=== PATIENT | female | born 1965 | race Two or more races ===

== ENCOUNTER 2021-04-01 11:27 | Outpatient (REF) | payer OTHER, SELFPAY ==
--- NOTE | ~2021-04-01 | MM_ITS ---
EXAMINATION: MM SCREENING DIGITAL BREAST TOMOSYNTHESIS, BILATERAL CLINICAL INFORMATION: Screening. Asymptomatic. Prior [id number] mammography from the your currently unavailable. The lifetime risk of breast cancer based on the Tyrer-Cuzick Model is 8%. COMPARISON: None. TECHNIQUE: Digital breast tomosynthesis is performed in both the craniocaudal and mediolateral oblique views along with computer-aided detection (CAD). Synthesized 2D images are generated from the tomosynthesis. Additional left MLO view is provided. FINDINGS: There are scattered areas of fibroglandular density (ACR BI-RADS breast composition Category b). Breast parenchyma borders on predominantly fatty. Background stromal markings are unremarkable. There is benign-appearing fibroglandular asymmetry posterior upper outer left breast. There is no significant mass or architectural abnormality. Scattered benign round and rim calcifications are present. The axilla and skin contours are unremarkable. Radiology department will attempt to retrieve prior [id number] mammography to allow for comparison in an addendum report. MM/MM tomosynthesis screening BI IMPRESSION: No mammographic evidence of malignancy. ASSESSMENT: BI-RADS 2: Benign RECOMMENDATION: 1. Routine annual mammography screening. 2. Radiology department staff will attempt to retrieve prior [id number] mammography to allow for comparison in an addendum report. This patient's information was entered into a reminder system with a target due date for their next mammogram.
== END 2021-04-01 11:28 | disposition home or self-care (01) ==
LOC: HO.MAMMO 11:27
PROVIDERS: PCP Nurse Practitioner Family; Visit Provider Nurse Practitioner Family
DX: Z12.31 Encounter for screening mammogram for malignant neoplasm of breast (principal)
CPT/HCPCS: 77063; 77067

== ENCOUNTER → 2021-05-22 10:09 | Outpatient (BNVA) | payer OTHER, SELFPAY | PROVIDERS: PCP Nurse Practitioner Family; Visit Provider Nurse Practitioner Family | DX: M54.42 Lumbago with sciatica, left side (principal); M79.7 Fibromyalgia; M54.17 Radiculopathy, lumbosacral region; M47.816 Spondylosis without myelopathy or radiculopathy, lumbar region; M47.22 Other spondylosis with radiculopathy, cervical region; M53.3 Sacrococcygeal disorders, not elsewhere classified | CPT/HCPCS: 99202 ==

== ENCOUNTER 2021-06-10 08:02 | Outpatient (REF) | payer OTHER, SELFPAY ==
[2021-06-10 08:25] LABS: MANUAL DIFF FLAG NO
[2021-06-10 08:38] LABS: Basophils Absolute Auto 0.1 X10*3/uL (0.0-0.2); Basophils Percent Auto 0.5 % (0-2); Eosinophils Absolute Auto 0.4 X10*3/uL (0.0-0.4); Eosinophils Percent Auto 3.7 % (0-4); Hematocrit 38.1 % (37.0-47.0); Imm Gran Abs Auto 0.03 X10*3/uL (0.00-0.03); Imm Gran Pct Auto 0.3 % (0.0-0.4); Lymphocytes Absolute Auto 1.9 X10*3/uL (1.2-4.9); Lymphocytes Percent Auto 18.8 % (20-40); Mean Corpuscular HGB Conc 31.5 g/dl (31.0-35.0); Mean Corpuscular Hemoglobin 26.2 pg (27.0-33.0); Mean Corpuscular Volume 83.2 fL (80.0-98.0); Mean Platelet Volume 11.3 fL (9.4-12.3); Monocytes Absolute Auto 0.7 X10*3/uL (0.1-1.2); Monocytes Percent Auto 6.6 % (2-11); Neutrophils Absolute Auto 6.9 x10*3/uL (2.0-8.3); Neutrophils Percent Auto 70.1 % (45-73); Platelet Count 239 X10*3/uL (160-400); Red Blood Count 4.58 X10*6/uL (4.20-5.50); Red Cell Distribution Width 13.5 % (11.0-16.0); White Blood Count 9.9 X10*3/uL (4.8-10.8)
[2021-06-10 09:08] LABS: Alanine Aminotransferase 15 U/L (0-31); Albumin Level 4.3 g/dL (3.5-5.0); Alkaline Phosphatase 109 U/L (39-117); Anion Gap 12 (12-20); Aspartate Amino Transferase 12 U/L (5-31); Bilirubin Total 0.2 mg/dL (0.0-1.0); Blood Urea Nitrogen 18 mg/dL (9-16); Calcium 9.1 mg/dL (8.4-10.2); Carbon Dioxide 28 mmol/L (22-29); Chloride 101 mmol/L (96-108); Cholesterol 195 mg/dL; Estimated Glomerular Filt Rate > 60; Glucose Fasting 156 mg/dL (60-99); HDL Cholesterol 59 mg/dL; LDL Cholesterol Calculated 107 mg/dl; Sodium 137 mmol/L (135-145); Total Protein 6.8 g/dL (6.5-8.0); Triglycerides 147 mg/dL
[2021-06-10 09:20] LABS: TSH reflex Free T4 1.49 uIU/mL (0.32-4.0)
[2021-06-10 09:33] LABS: Estimated Average Glucose 169 mg/dL; Hemoglobin A1c % 7.5 %
[2021-06-10 10:07] LABS: Creatinine Urine 82.62 mg/dL; Microalbum/Creatinine Ratio Ur 9.6 ug/mg cr
== END 2021-06-10 08:03 | disposition home or self-care (01) ==
LOC: HO.LAB 08:02
PROVIDERS: PCP Nurse Practitioner Family; Visit Provider Nurse Practitioner Family
DX: I10 Essential (primary) hypertension (principal); J45.40 Moderate persistent asthma, uncomplicated; E78.00 Pure hypercholesterolemia, unspecified; E11.9 Type 2 diabetes mellitus without complications; D50.9 Iron deficiency anemia, unspecified; M79.7 Fibromyalgia
CPT/HCPCS: 36415; 80053; 80061; 82043; 83036; 84443; 85025

== ENCOUNTER 2021-06-11 15:40 | Outpatient (REF) | payer OTHER, SELFPAY ==
--- NOTE | ~2021-06-11 | MR_ITS ---
MR LUMBAR SPINE WITHOUT IV CONTRAST CLINICAL INFORMATION: Sacrococcygeal disorders, not elsewhere classified. COMPARISON: None TECHNIQUE: MRI of the lumbar spine was obtained using routine sequences without contrast. FINDINGS: Transitional anatomy. Articulating transverse processes are assumed at L1 and S1 is lumbarized, sharing a rudimentary disc with S2. 5 lumbar type vertebral bodies. Please correlate with plain films prior to any percutaneous or surgical intervention. Vertebral body heights are maintained. There is disc desiccation at the L3-L4, L4-L5, and L5-S1 levels. There is no bone marrow edema. There are no acute fractures. Conus terminates at the L1 level. There is partially imaged bulky retroperitoneal lymphadenopathy. L1-L2: Small annular disc bulge. No central canal stenosis and no foraminal stenosis. L2-L3: Slight annular disc bulge and mild bilateral facet arthropathy. No central canal stenosis and no foraminal stenosis. L3-L4: Diffuse annular disc bulge and moderate bilateral facet arthropathy and ligamentum flavum thickening. No central canal stenosis. Mild foraminal encroachment bilaterally. L4-L5: Diffuse annular disc bulge and moderate bilateral facet arthropathy and ligamentum flavum thickening. No central canal stenosis. Mild to moderate bilateral foraminal encroachment without exiting nerve root compression. L5-S1: Diffuse annular disc bulge and moderate bilateral hypertrophic facet arthropathy. No central canal stenosis. Moderate bilateral foraminal stenosis with mild mass effect on the exiting L5 nerve roots bilaterally. MR/MR lumbar spine wo con IMPRESSION: - There is partially imaged bulky retroperitoneal lymphadenopathy. Contrast-enhanced CT of the chest, abdomen, and pelvis and a full malignancy workup are advised. - Transitional anatomy. Articulating transverse processes are assumed at L1 and S1 is lumbarized, sharing a rudimentary disc with S2. 5 lumbar type vertebral bodies. Please correlate with plain films prior to any percutaneous or surgical intervention. - Multilevel lumbar spondylosis, greatest at L5-S1 where spondylitic changes result in moderate bilateral foraminal stenosis with mild mass effect on the exiting L5 nerve roots bilaterally. Findings and recommendations discussed with Keely Soliman NP at 8:54 AM on 06/12/2021.
== END 2021-06-11 15:41 | disposition home or self-care (01) ==
LOC: HO.MRI 15:40
PROVIDERS: Visit Provider Nurse Practitioner Family
DX: M53.3 Sacrococcygeal disorders, not elsewhere classified (principal); M54.17 Radiculopathy, lumbosacral region; M47.816 Spondylosis without myelopathy or radiculopathy, lumbar region; M54.42 Lumbago with sciatica, left side; G89.29 Other chronic pain
CPT/HCPCS: 72148

== ENCOUNTER 2021-06-15 09:31 | Outpatient (REF) | payer OTHER, SELFPAY ==
[2021-06-18 08:11] LABS: CA 125 New Method 4 U/mL (<35); CA-125 4 U/mL (<35); Carbohydrate Antigen 19-9 7 U/mL (<34)
[2021-06-19 08:57] LABS: Cancer Antigen 15-3 7 U/mL (<32)
== END 2021-06-15 09:32 | disposition home or self-care (01) ==
LOC: HO.LAB 09:31
PROVIDERS: PCP Nurse Practitioner Family; Visit Provider Nurse Practitioner Family
DX: R59.0 Localized enlarged lymph nodes (principal)
CPT/HCPCS: 36415; 82378; 86300; 86301; 86304

== ENCOUNTER → 2021-06-29 11:10 | Outpatient (BNVA) | payer OTHER, SELFPAY | PROVIDERS: PCP Nurse Practitioner Family; Visit Provider Nurse Practitioner Family | DX: Z13.89 Encounter for screening for other disorder (principal) ==

== ENCOUNTER 2021-07-03 11:31 | Outpatient (REF) | payer OTHER, SELFPAY ==
--- NOTE | ~2021-07-03 | XR_ITS ---
EXAMINATION: XR lumbar spine 2-3V CLINICAL INFORMATION: Reason for Exam M54.17 - Radiculopathy, lumbosacral region COMPARISON: None TECHNIQUE: 3 views of the lumbar spine XR/XR lumbar spine 2-3V FINDINGS/IMPRESSION: * Vertebral body heights and alignment are maintained without evidence of acute fracture. * Disc space heights are maintained without significant degenerative disc disease. * Transitional lumbosacral anatomy is incidentally noted with 4 nonrib-bearing lumbar-type vertebral bodies with sacralization of L5 and rudimentary L5-S1 disc space. If intervention is being considered recommend total spine radiographs to ensure accurate numbering.
== END 2021-07-03 11:32 | disposition home or self-care (01) ==
LOC: HO.XRAY 11:31
PROVIDERS: PCP Nurse Practitioner Family; Visit Provider Nurse Practitioner Family
DX: M54.17 Radiculopathy, lumbosacral region (principal); M47.816 Spondylosis without myelopathy or radiculopathy, lumbar region
CPT/HCPCS: 72100

== ENCOUNTER 2021-07-17 11:49 | Outpatient (REF) | payer OTHER, SELFPAY ==
[2021-07-17 13:48] LABS: Blood Urea Nitrogen 8 mg/dL (9-16); Estimated Glomerular Filt Rate > 60
== END 2021-07-17 11:50 | disposition home or self-care (01) ==
LOC: HO.LAB 11:49
PROVIDERS: PCP Nurse Practitioner Family; Visit Provider Nurse Practitioner Family
DX: Z01.818 Encounter for other preprocedural examination (principal)
CPT/HCPCS: 82565; 84520

== ENCOUNTER 2021-07-21 12:46 | Outpatient (REF) | payer OTHER, SELFPAY ==
--- NOTE | ~2021-07-21 | CT_ITS ---
EXAMINATION: CT CHEST, ABDOMEN AND PELVIS WITH CONTRAST CLINICAL INFORMATION: Reason for Exam R59.0 - Localized enlarged lymph nodes COMPARISON: MRI lumbar spine 06/11/2021 TECHNIQUE: Multidetector volumetric imaging was performed from the thoracic inlet through the pubic symphysis following administration of 85 mL of Omnipaque 300. Sagittal and coronal reformatted images were obtained on the technologist's workstation. This CT examination was performed using dose optimization techniques as appropriate, variously including the following: *Automated exposure control *Adjustment of mA and/or kV according to patient size (this includes techniques or standardized protocols for targeted exams where dose is matched to indication/reason for exam; i.e. extremities or head) *Use of iterative reconstruction technique DLP: 203 mGy-cm FINDINGS: CHEST: Lung: The lungs are clear without focal opacity or nodule. Mediastinum: The mediastinum is normal. The central vascular structures are unremarkable. No hilar or mediastinal lymphadenopathy. Pericardium/Pleura: No significant effusion. No pleural mass or thickening. Chest Wall/Axilla: Unremarkable ABDOMEN/PELVIS: Peritoneal Space: No significant free air or free fluid identified. Liver, Gallbladder, Biliary Tree: The liver is normal in size, shape, and attenuation. No focal hepatic lesion or biliary ductal dilatation is present. The gallbladder is unremarkable with no evidence of radiopaque gallstones, gallbladder wall thickening, or obvious pericholecystic inflammatory changes. Pancreas: Unremarkable Spleen: Unremarkable Adrenal Glands: There is a large fat density mass arising from the lateral limb of the left adrenal gland measuring 4.1 x 4.6 x 4.3 cm consistent with an adrenal myelolipoma lipoma. The right adrenal gland appears normal. Kidneys and Ureters: The kidneys are normal in size, shape, and attenuation. There is a punctate 2 mm nonobstructing calculus present in the right lower pole. No hydronephrosis, hydroureter, or other calculi seen. No perinephric stranding. Bladder: Unremarkable Gastrointestinal Tract: The small and large bowel are unremarkable. The appendix is unremarkable. Abdominal Wall: No significant hernia is appreciated. Lymph Nodes: Large left para-aortic lymph nodes are seen. The largest node is in the left para-aortic region and measures 2.4 x 2.5 x 6.5 cm (3:52). If desired, this would be amenable to CT-guided biopsy. Smaller left external iliac lymph nodes are present with the largest on the right measuring 2.0 x 1.7 x 2.9 cm (3:77) Vascular: The aorta appears normal.. The IVC appears unremarkable. PELVIC VISCERA: Unremarkable OSSEUS STRUCTURES: Mild degenerative changes are noted in the thoracic spine. No bony destructive lesions are seen. CT/CT abdomen pelvis w con IMPRESSION: Pathologically enlarged left para-aortic lymph nodes. Please see discussion above. Fleischner guidelines were followed.
[2021-07-21] MEDS: iohexoL 300 MG/ML 100 ML INFUS..BTL IV (15:35)
[2021-07-21] MEDS: Barium Sulfate Oral (Berry) 450 ML ORAL.SUSP 900 ML PO (15:40)
== END 2021-07-21 12:47 | disposition home or self-care (01) ==
LOC: HO.CT 12:46
PROVIDERS: Visit Provider Nurse Practitioner Family
DX: R59.0 Localized enlarged lymph nodes (principal)
CPT/HCPCS: 71260; 74177; Q9967

== ENCOUNTER → 2021-07-27 08:54 | Outpatient (BNVA) | payer OTHER, SELFPAY | PROVIDERS: PCP Nurse Practitioner Family; Referring Provider Nurse Practitioner Family; Visit Provider Surgery | DX: R59.0 Localized enlarged lymph nodes (principal) | CPT/HCPCS: 99202 ==

== ENCOUNTER 2021-08-06 08:33 | Outpatient (REF) | payer OTHER, SELFPAY ==
--- NOTE | 2021-08-06 08:36 | EMG_ITS ---
Left median and ulnar motor and sensory studies were performed. Left radial sensory studies were performed and paraspinal muscles were tested with a needle. IMPRESSION: Mild left median neuropathy across carpal tunnel. Otherwise, study was unremarkable. MD SUKHDEV Sanders/RACHEL / [phone]
== END 2021-08-06 08:34 | disposition home or self-care (01) ==
LOC: HO.NEURO 08:33
PROVIDERS: Visit Provider Nurse Practitioner Family
DX: M47.22 Other spondylosis with radiculopathy, cervical region (principal)
CPT/HCPCS: 95886; 95909

== ENCOUNTER 2021-08-21 12:21 | Day surgery (SDC) | payer OTHER, SELFPAY ==
[2021-08-21] VITALS (7 sets, daily range): BP systolic 146–160; BP diastolic 75–95; PULSE 60–70; RESP 11–19; TEMP 36.4–36.8; O2SAT 96–98; BMI 33.0
--- NOTE | ~2021-08-21 | CT_ITS ---
PROCEDURE: CT GUIDED BIOPSY, ABDOMINAL MASS CLINICAL INFORMATION: Enlarged left para-aortic lymph nodes. COMPARISON: None TECHNIQUE: Following explaining CT fluoroscopy-guided core biopsy procedure of left para-aortic lymph node, benefits and risks were explained. Consent was obtained for conscious sedation as well. Patient was placed semi-prone on CT table and preliminary CT imaging was obtained. An optimal site was selected along the left paraspinal region and marked. The marked site was cleaned and draped in usual sterile manner. 1% lidocaine was injected at puncture site. A 15 cm long 22-gauge guide needle was advanced from the skin just to the posterior margin of the large lymph node. Coaxially a 22-gauge 20 cm long needle was advanced and a 3 pass fine-needle biopsy was performed. The coaxial needle was withdrawn and complete hemostasis achieved. Sterile dressing applied postprocedure. Patient tolerated procedure extremely well. There were no complications. Conscious sedation was administered and patient monitored by IR nursing and radiologist during the exam. This CT examination was performed using dose optimization techniques as appropriate, variously including the following: *Automated exposure control *Adjustment of mA and/or kV according to patient size (this includes techniques or standardized protocols for targeted exams where dose is matched to indication/reason for exam; i.e. extremities or head) *Use of iterative reconstruction technique DLP: 364 mGy-cm FINDINGS: On preliminary imaging there are several left para-aortic lymph nodes visualized. CT fluoroscopy-guided left para-aortic lymph node biopsy was performed. Preliminary results from pathologist revealed lymphocytes. Samples were also sent for lymphoma evaluation. CT/CT biopsy abdomen percutaneous IMPRESSION: Successful CT fluoroscopy-guided left para-aortic lymph node biopsy performed without immediate complications.
[2021-08-21 12:38] LABS: MANUAL DIFF FLAG NO
[2021-08-21 12:40] LABS: Basophils Percent Auto 0.5 % (0-2); Eosinophils Absolute Auto 0.1 X10*3/uL (0.0-0.4); Eosinophils Percent Auto 1.6 % (0-4); Hematocrit 37.5 % (37.0-47.0); Hemoglobin 11.6 g/dl (12.0-16.0); Imm Gran Abs Auto 0.02 X10*3/uL (0.00-0.03); Imm Gran Pct Auto 0.3 % (0.0-0.4); Lymphocytes Absolute Auto 1.5 X10*3/uL (1.2-4.9); Lymphocytes Percent Auto 19.9 % (20-40); Mean Corpuscular HGB Conc 30.9 g/dl (31.0-35.0); Mean Corpuscular Hemoglobin 25.7 pg (27.0-33.0); Mean Corpuscular Volume 83.1 fL (80.0-98.0); Mean Platelet Volume 10.9 fL (9.4-12.3); Monocytes Absolute Auto 0.4 X10*3/uL (0.1-1.2); Monocytes Percent Auto 5.8 % (2-11); Neutrophils Absolute Auto 5.3 x10*3/uL (2.0-8.3); Neutrophils Percent Auto 71.9 % (45-73); Platelet Count 221 X10*3/uL (160-400); Red Blood Count 4.51 X10*6/uL (4.20-5.50); Red Cell Distribution Width 13.8 % (11.0-16.0); White Blood Count 7.4 X10*3/uL (4.8-10.8)
[2021-08-21 12:45] LABS: Prothrombin Time 11.4 SEC (10.0-13.1)
[2021-08-21 12:58] LABS: Glucose, Whole Blood 117 mg/dL (60-115)
[2021-08-21] MEDS: Acetaminophen 325 MG TABLET 650 MG PO (15:30)
== END 2021-08-21 16:43 | disposition home or self-care (01) ==
PROVIDERS: Radiology Diagnostic Radiology; PCP Nurse Practitioner Family; Visit Provider Radiology Diagnostic Radiology
DX: R59.0 Localized enlarged lymph nodes (principal); G89.29 Other chronic pain; M54.9 Dorsalgia, unspecified; Z79.84 Long term (current) use of oral hypoglycemic drugs; Z79.899 Other long term (current) drug therapy; Z88.0 Allergy status to penicillin; Z90.49 Acquired absence of other specified parts of digestive tract
CPT/HCPCS: 36415; 49180; 77012; 82947; 85025; 85610; 85730; 88184; 88185; 88305; 88333; 88341; 88342; 88360; 99152; J2250; J3010

== ENCOUNTER → 2021-08-27 11:53 | Outpatient (BNVA) | payer OTHER, SELFPAY | PROVIDERS: PCP Nurse Practitioner Family; Visit Provider Surgery | DX: C85.12 Unspecified B-cell lymphoma, intrathoracic lymph nodes (principal); Z98.890 Other specified postprocedural states | CPT/HCPCS: 99212 ==

== ENCOUNTER 2021-09-22 13:15 | Outpatient (REF) | payer OTHER, SELFPAY ==
--- NOTE | ~2021-09-22 | PE_ITS ---
Non-Hodgkin's B-cell lymphoma EXAMINATION: Fluorine-18 FDG PET/CT Scan CLINICAL INDICATION: Initial treatment management. Non-Hodgkin's B-cell lymphoma. PROCEDURE: 58 minutes following the intravenous administration of 16.9 mCi of fluorine 18 FDG, images from the base of the skull to the mid thighs were obtained using a combined PET/CT scanner with CT scan based attenuation correction. No oral contrast was administered. No intravenous contrast was administered. Transverse, coronal, sagittal, and volume reconstruction projections were obtained. The patient's blood glucose as determined by a finger stick, was 113 mg/dl immediately prior to injection. Total CT exam dose-length product 852.63 mGy-cm * These CT images were obtained using dose optimization techniques as appropriate, variously including the following: Automated exposure control * Adjustment of mA and/or kV according to patient size (this includes techniques or standardized protocols for targeted exams where dose is matched to indication/reason for exam; i.e. extremities or head) * Use of iterative reconstruction technique COMPARISON: No previous PET/CT scan is available for comparison. The diagnostic CT scan of the chest, abdomen, and pelvis, dated 07/21/2021, is available for comparison. CT-guided biopsy of a left retroperitoneal lymph node dated 08/21/2021 is also available for comparison. FINDINGS: (Slice numbers described in this report are numbered superiorly to inferiorly with slice #1 in the head) NECK AND VISUALIZED HEAD: No foci of abnormal FDG activity are noted. The distribution of FDG activity is physiological. There is no cervical lymphadenopathy. THORAX: There are no additional foci of abnormal FDG activity. No pulmonary nodules are visualized. There is no pleural or pericardial fluid or pneumothorax. There is no mediastinal, supraclavicular, or axillary lymphadenopathy. ABDOMEN AND PELVIS: There is mildly increased FDG activity in an enlarged left para-aortic recently biopsied retroperitoneal lymph node, SUVmax 4.2, slice 155/267. This measures 2.2 x 2.1 cm in largest transverse dimensions and does not appear significantly changed from the 07/21/2021 CT scan. Multiple additional adjacent left-sided retroperitoneal lymph nodes also show mild FDG activity. There also are a few normal-sized mildly FDG avid left inguinal lymph nodes, the most prominent showing SUVmax 2.8, slice 216/267 and measuring 2.2 x 1.1 cm in largest transverse dimension. No definite additional foci of abnormal FDG activity are noted in the abdomen or pelvis. Diffuse FDG activity throughout the gastrointestinal tract of varying intensities is probably physiological as well as related to metformin use. The liver, gallbladder, spleen, and pancreas are unremarkable. A punctate right lower pole nonobstructing calcified renal calculus is unchanged from 07/21/2021. The kidneys are otherwise unremarkable. The right adrenal gland is unremarkable. There is a 4.0 x 3.2 cm fat-density lesion in the left adrenal gland with no associated abnormal FDG activity unchanged from 07/21/2021 and likely an adrenal myelolipoma. The pelvic organs are unremarkable. MUSCULOSKELETAL: No foci of abnormal activity are present in the osseous structures. There are degenerative changes in the spine, but no suspicious sclerotic or lytic lesions are visualized. VASCULAR: Vascular calcifications including coronary are noted. PET/PET CT fusion skull to thigh IMPRESSION: 1. Multiple FDG avid left-sided retroperitoneal lymph nodes are noted as described above, consistent with the known diagnosis of non-Hodgkin's B-cell lymphoma. 2. There are a few normal-sized mildly FDG avid left inguinal lymph nodes which are nonspecific, but suspicious for additional malignant foci. 3. No additional abnormalities suspicious for other metastatic or malignant lesions are noted. 4. Nonobstructing punctate right nephrolithiasis. 5. Vascular calcifications including coronary.
== END 2021-09-22 13:16 | disposition home or self-care (01) ==
LOC: HO.PET 13:15
PROVIDERS: Visit Provider Internal Medicine
DX: Z13.89 Encounter for screening for other disorder (principal)

== ENCOUNTER → 2021-12-22 12:23 | Outpatient (BNVA) | payer OTHER, SELFPAY | PROVIDERS: PCP Physician Assistant; Referring Provider Physician Assistant; Visit Provider Internal Medicine Cardiovascular Disease | DX: R06.09 Other forms of dyspnea (principal); I10 Essential (primary) hypertension | CPT/HCPCS: 93005; 99202 ==

== ENCOUNTER → 2022-01-06 12:33 | Outpatient (REF) | payer OTHER, SELFPAY ==
--- NOTE | 2022-01-06 12:36 | CA_ITS ---
Transthoracic Echocardiogram Patient (Last, First, Middle): Tiffany Johnson, Gender: Female Date of : 1965 Age: 56 Procedure Date: 01/06/2022 Procedure Type: Transthoracic Echocardiogram Location: OP Height: 157.48 cm Weight: 81.65 kg BSA: 1.83 m2 Heart Rate: 66 bpm BP: 130 / 80 mmHg Associate Software Development Engineer: ARIA Referring MD: Jermaine Alvarado MD Symptoms: R06.09 - Other forms of dyspnea Study Quality: Fair ECG Rhythm: Sinus Conclusions: - The left ventricular systolic function is normal. The visually estimated ejection fraction is between 60-65%. - The left atrium is moderately dilated. - No obvious valvular pathology seen on this study. Findings Left Ventricle Normal left ventricular cavity size. There is mildly increased left ventricular wall thickness. The left ventricular systolic function is normal. The visually estimated ejection fraction is between 60-65%. There is no evidence of regional wall motion abnormalities. E/E prime ratio is between 8 and 15 consistent with indeterminate filling pressures. Evidence suggests grade I (mild) diastolic dysfunction. Right Ventricle Normal right ventricular cavity size and systolic function. Atria The left atrium is moderately dilated. The right atrium is normal in size. Aortic Valve There is a normal trileaflet aortic valve. There is no aortic valve stenosis. There is no aortic valve regurgitation. Mitral Valve There is mild mitral annular calcification. There is no mitral valve regurgitation. There is no mitral valve stenosis. Pulmonic Valve The pulmonic valve is likely normal. Tricuspid Valve Normal tricuspid valve structure. There is trace tricuspid valve regurgitation. There is no evidence of pulmonary hypertension. Great Vessels The asc aorta is normal in size. Small plaque is seen in the sino tubular ridge. Venous The inferior vena cava is normal in size and collapses greater than 50% with inspiration. Pericardium/Pleural There is no evidence of pericardial effusion. Prior Study Comparison No prior study available for comparison. Recommendations, Care & Conclusions No obvious valvular pathology seen on this study. Measurements 2D Linear Measurements IVSd: 1.29 0.6-0.9/0.6-1.0 cm LVIDd: 4.53 3.9-5.3/4.2-5.9 cm LVIDd Index: 2.48 2.4-3.2/2.2-3.1 cm/m2 LVIDs: 2.86 2.0-3.6 cm LVPWd: 1.27 0.7-1.1 cm LA Diam: 3.90 2.7-3.8/3.0-4.0 cm LAIDs Index: 2.13 1.5-2.3 cm/m2 LV Mass: 273.98 67-162/88-224 g LV Mass Index: 149.72 43-95/49-115 g/m2 LVOT Diam: 2.10 3.0+(-)1.3 cm 2D Systolic Function EF 4C: 51.50 >55% EF 2C: 63.00 >55% EF BiP: 57.30 >55% Mitral Valve MV Pk E: 0.94 MV PK A: 0.96 MV Decel Time: 233.00 E/A: 1.00 E'Lateral: 7.72 E'Medial: 4.90 E/E' Med: 19.20 E/E' Lat: 12.20 PHT: 68.00 MVA PHT: 3.24 Decel [place]: 4.05 Aortic Valve AoV Pk Ryne: 1.59 AoV Mn Ryne: 1.07 AoV VTI: 0.35 AoV Pk Grad: 10.00 Aov Mn Grad: 5.00 CHLOE Cont.VTI: 2.27 LVOT LVOT Pk Ryne: 1.06 LVOT Mn Ryne: 0.73 LVOT VTI: 0.23 LVOT Pk Grad: 4.00 LVOT Mn Grad: 2.00 LVOT Diam: 2.10 LVOT Area: 3.46 Diastolic Function MV Pk E: 0.94 MV Pk A: 0.96 E/A: 1.00 E'Medial: 4.90 E/E' Med: 19.20 E' Laterial: 7.72 E/E' Lat: 12.20 Right Ventricle TAPSE (mm): 19.40 TVS' Ryne: 11.10 Tricuspid Valve TR Pk Ryne: 1.94 TR Pk Grad: 15.00 RA Press: 3.00 RVSP: 18.00 Great Vessels Aorta Sinus of Valsalva: 3.60 2.0-3.5 cm Ao Asc: 3.50 2.1-3.4 cm Pulmonary Valve PV Pk Ryne: 0.95 Peak PV Grad: 4.00 Updated in Other Vendor System with Status of Final Steve Mcfarlane MD electronically signed on 01/09/2022 1:00:52 PM with status of Final
== END ==
LOC: HO.CARD 12:33
PROVIDERS: PCP Physician Assistant; Visit Provider Internal Medicine Cardiovascular Disease
DX: R06.09 Other forms of dyspnea (principal); I10 Essential (primary) hypertension
CPT/HCPCS: 93306

== ENCOUNTER 2022-01-11 12:38 | Outpatient (REF) | payer OTHER, SELFPAY ==
[2022-01-11 12:55] LABS: MANUAL DIFF FLAG NO
[2022-01-11 12:56] LABS: Basophils Percent Auto 0.6 % (0-2); Eosinophils Absolute Auto 0.2 X10*3/uL (0.0-0.4); Eosinophils Percent Auto 2.2 % (0-4); Hematocrit 38.9 % (37.0-47.0); Imm Gran Abs Auto 0.03 X10*3/uL (0.00-0.03); Imm Gran Pct Auto 0.4 % (0.0-0.4); Lymphocytes Absolute Auto 1.5 X10*3/uL (1.2-4.9); Lymphocytes Percent Auto 21.4 % (20-40); Mean Corpuscular HGB Conc 30.8 g/dl (31.0-35.0); Mean Corpuscular Hemoglobin 26.1 pg (27.0-33.0); Mean Corpuscular Volume 84.6 fL (80.0-98.0); Monocytes Absolute Auto 0.4 X10*3/uL (0.1-1.2); Neutrophils Absolute Auto 4.8 x10*3/uL (2.0-8.3); Neutrophils Percent Auto 69.4 % (45-73); Platelet Count 232 X10*3/uL (160-400); Red Cell Distribution Width 13.4 % (11.0-16.0)
[2022-01-11 13:28] LABS: Alanine Aminotransferase 19 U/L (0-31); Albumin Level 4.3 g/dL (3.5-5.0); Alkaline Phosphatase 92 U/L (39-117); Anion Gap 12 (12-20); Aspartate Amino Transferase 16 U/L (5-31); Bilirubin Total 0.3 mg/dL (0.0-1.0); Blood Urea Nitrogen 7 mg/dL (9-16); Calcium 9.1 mg/dL (8.4-10.2); Carbon Dioxide 28 mmol/L (22-29); Chloride 106 mmol/L (96-108); Estimated Glomerular Filt Rate > 60; Glucose Random 135 mg/dL (60-115); Potassium 3.9 mmol/L (3.3-5.1); Sodium 142 mmol/L (135-145); Total Protein 6.4 g/dL (6.5-8.0)
== END 2022-01-11 12:39 | disposition home or self-care (01) ==
LOC: HO.LAB 12:38
PROVIDERS: PCP Physician Assistant; Visit Provider Internal Medicine
DX: C85.90 Non-Hodgkin lymphoma, unspecified, unspecified site (principal)
CPT/HCPCS: 36415; 80053; 85025

== ENCOUNTER → 2022-01-14 09:39 | Outpatient (REF) | payer OTHER, SELFPAY ==
--- NOTE | ~2022-01-14 | NM_ITS ---
Myocardial perfusion study Indication: Shortness of breath evaluate for myocardial ischemia Technique: The patient was brought in for a Lexiscan perfusion study on 01/14/2022. Patient performed low-level exercise and was injected 0.4 mg of Lexiscan intravenously. Within a minute of injection, 30 mCi of sestamibi was given intravenously. Images were obtained using the SPECT gamma camera interlaced with the gating device. Images were obtained in supine position. Resting perfusion study was performed on 01/18/2022. Patient was administered 30 mCi of sestamibi intravenously at rest. Images were then obtained in supine position. Images obtained with and without CT attenuation. Total DLP 122 mGy-cm. Images were processed with the software and compared side to side in short axis, horizontal long axis and vertical long axis views. Findings: The stress perfusion study showed non attenuated images show mildly reduced uptake in the basal inferior wall of the LV myocardium. Remainder of the LV myocardium is normally perfused. Attenuation corrected images show minimally reduced uptake in the apex of the LV myocardium.. The gated study shows normal LV systolic function with calculated LVEF of 66%. LV cavity is normal in size. The gated study shows normal systolic wall thickening and contraction of segments. Resting study shows attenuation corrected images show moderately reduced uptake in the apex and mildly reduced uptake in the distal anterior and septal wall of the LV myocardium. Non attenuated corrected images show mildly reduced uptake in the apex of the LV myocardium.. Gating at rest reveals normal systolic wall motion with ejection fraction at 69%. The findings are consistent with normal myocardial perfusion. NM/NM mauricio perf SPECT rest & str Impression: 1. Myocardial perfusion imaging study shows normal myocardial perfusion 2. Gated LVEF is 66% 3. Transient ischemic dilatation not present EKG is nondiagnostic for ischemia
--- NOTE | 2022-01-14 09:42 | CA_ITS ---
Acquisition Time: 2022-01-14 10:02:53 Total Exercise Time: 00:02:00 Test Indications: PALPITATIONS Medications: Protocol: LEXISCAN Max HR: 114 BPM 70% of Pred: 162 BPM Max BP: 128/082 mmHG Max Work Load: 1.0 METS Pharmacological stress test with Lexiscan injection, while sitting and kicking her legs, with report of sob and nausea, no chest discomfort, without arrythmia, with normotensive response to injection, with nondiagnostic EKG for ischemia.In recovery she was treated with Aminophylline 75mg IVP to reverse Lexiscan with resolution of symptoms. Nuclear images pending. Test reviewed with Dr Khanna Referred By: Jermaine Alvarado Overread By: JOSE TREVIÑO
== END ==
LOC: HO.CARD 09:39
PROVIDERS: PCP Physician Assistant; Visit Provider Internal Medicine Cardiovascular Disease
DX: R06.09 Other forms of dyspnea (principal)
CPT/HCPCS: 78452; 93017; A9500; J0280; J2785

== ENCOUNTER 2022-01-22 08:03 | Outpatient (REF) | payer OTHER, SELFPAY ==
--- NOTE | ~2022-01-22 | CT_ITS ---
EXAMINATION: CT ABDOMEN AND PELVIS WITH CONTRAST CLINICAL INFORMATION: Lymphadenopathy COMPARISON: PET/CT fusion skull to thigh 09/23/2021 and 07/21/2021. TECHNIQUE: Multidetector volumetric images were obtained from the superior aspect of the liver through the pubic symphysis following administration 85 mL of Omnipaque 350 intravenous contrast. Sagittal and coronal reformatted images were obtained on the technologist's workstation. Oral contrast: No This CT examination was performed using dose optimization techniques as appropriate, variously including the following: *Automated exposure control *Adjustment of mA and/or kV according to patient size (this includes techniques or standardized protocols for targeted exams where dose is matched to indication/reason for exam; i.e. extremities or head) *Use of iterative reconstruction technique DLP: 508 mGy-cm. FINDINGS: LUNG BASES: The visualized lung bases are unremarkable. LIVER, GALLBLADDER, AND BILIARY TREE: The liver is normal in size, shape, and attenuation. No focal hepatic lesion or biliary ductal dilatation is present. The gallbladder is unremarkable with no evidence of radiopaque gallstones, gallbladder wall thickening, or obvious pericholecystic inflammatory changes. PANCREAS: Unremarkable. SPLEEN: Unremarkable. ADRENAL GLANDS: There is a mixed density mass left adrenal gland measuring 4.6 x 4.4 x 4.1 cm and measuring -22 Hounsfield units consistent adrenal myolipoma. The right adrenal gland is unremarkable. KIDNEYS AND URETERS: The kidneys are normal in size, shape, and attenuation. No hydronephrosis, hydroureter, or calculi seen. No perinephric stranding. BLADDER: Unremarkable. GASTROINTESTINAL TRACT: There is scattered stool and gas seen throughout the colon without distention. The small bowel loops are normal caliber. Appendix is not visualized. No free air or free fluid seen. ABDOMINAL WALL: No significant hernia is appreciated. LYMPH NODES: Again visualized are normal left para-aortic lymph nodes. The largest lymph node measures 2.0 cm on axial slice 36/3. On previous CT it measured 1.6 cm on axial slice 41/3. A second largest lymph node in the left para-aortic region axial slice 40/3 measures 2.3 cm. Previously it measured 1.7 cm. This lymph node appears slightly larger. A third lymph node inferior to left pole left kidney measures 2.50 cm on axial image 48/3, previously measured 2.2 cm. Overall the lymph node size have increased. VASCULAR: Unremarkable. PELVIC VISCERA: No free air or free fluid seen. Few scattered sigmoid diverticuli seen without diverticulitis. OSSEOUS STRUCTURES: No aggressive lytic or sclerotic process seen. CT/CT abdomen pelvis w IV con IMPRESSION: No acute intra-abdominal process. Left retroperitoneal lymphadenopathy slightly appears larger in size compared to 07/21/2021 CT abdomen exam. Scattered sigmoid colon diverticulosis. Fleischner guidelines were followed.
[2022-01-22] MEDS: iohexoL 350 MG/ML 100 ML INFUS..BTL IV (09:40)
== END 2022-01-22 08:04 | disposition home or self-care (01) ==
LOC: HO.CT 08:03
PROVIDERS: PCP Physician Assistant; Visit Provider Internal Medicine
DX: C85.90 Non-Hodgkin lymphoma, unspecified, unspecified site (principal)
CPT/HCPCS: 74177; Q9967

== ENCOUNTER → 2022-02-04 12:53 | Outpatient (BNVA) | payer OTHER, SELFPAY | PROVIDERS: PCP Physician Assistant; Referring Provider Physician Assistant; Visit Provider Internal Medicine Cardiovascular Disease | DX: I11.9 Hypertensive heart disease without heart failure (principal) | CPT/HCPCS: 99212 ==

== ENCOUNTER 2022-02-12 12:11 | Outpatient (REF) | payer OTHER, SELFPAY ==
[2022-02-12 13:19] LABS: Anion Gap 11 (12-20); Blood Urea Nitrogen 10 mg/dL (9-16); Carbon Dioxide 28 mmol/L (22-29); Chloride 104 mmol/L (96-108); Estimated Glomerular Filt Rate > 60; Glucose Random 220 mg/dL (60-115); Sodium 139 mmol/L (135-145)
== END 2022-02-12 12:12 | disposition home or self-care (01) ==
LOC: HO.LAB 12:11
PROVIDERS: PCP Physician Assistant; Visit Provider Internal Medicine Cardiovascular Disease
DX: I11.9 Hypertensive heart disease without heart failure (principal)
CPT/HCPCS: 36415; 80048

== ENCOUNTER → 2022-02-23 08:42 | Outpatient (REF) | payer OTHER, SELFPAY | LOC: HO.SL 08:42 | PROVIDERS: PCP Physician Assistant; Visit Provider Internal Medicine Cardiovascular Disease | DX: I10 Essential (primary) hypertension (principal); R06.83 Snoring; G47.10 Hypersomnia, unspecified | CPT/HCPCS: 95806 ==

== ENCOUNTER → 2022-04-08 09:56 | Outpatient (BNVA) | payer OTHER, SELFPAY | PROVIDERS: PCP Physician Assistant; Visit Provider Surgery Vascular Surgery | DX: I83.11 Varicose veins of right lower extremity with inflammation (principal) | CPT/HCPCS: 99202 ==

== ENCOUNTER 2022-05-05 10:19 | Outpatient (REF) | payer OTHER, SELFPAY ==
--- NOTE | ~2022-05-05 | US_ITS ---
EXAMINATION: US LOWER EXTREMITY VENOUS (REFLUX EXAM), BILATERAL CLINICAL INDICATION: Chronic venous insufficiency with lower extremity varicose veins and inflammation COMPARISON: None. TECHNIQUE: Color flow triplex imaging and compression Doppler was performed to evaluate both the deep and the superficial systems bilaterally. To evaluate the superficial system, the examination was performed in the upright position. Color-flow Doppler ultrasound and compression ultrasound were utilized. In addition, maneuvers were utilized to demonstrate reflux. FINDINGS: 1. DEEP VENOUS ULTRASOUND OF THE RIGHT LOWER EXTREMITY: Common Femoral Vein: Compressible, normal respiratory variation and augmented flow. Femoral Vein: Compressible, normal color flow and augmentation. Popliteal Vein: Compressible, normal augmentation. Deep Reflux: There is no evidence of reflux in the deep system in either the common femoral vein or the popliteal vein. There is no evidence of a Godinez's cyst. 2. SUPERFICIAL ULTRASOUND WITH DOPPLER OF RIGHT LOWER EXTREMITY: GREAT SAPHENOUS VEIN: Saphenofemoral Junction: 0.8 cm; Reflux: 0 ms Proximal Thigh: 0.5 cm; Reflux: 0 ms Mid Thigh: 0.3 cm; Reflux: 616 ms Above Knee: 0.2 cm; Reflux: 0 ms At Knee: 0.2 cm; Reflux: 0 ms Below Knee: 0.2 cm; Reflux: 0 ms Mid Calf: 0.2 cm; Reflux: 0 ms Ankle: 0.2 cm; Reflux: 0 ms DUPLICATED MEDIAL GREAT SAPHENOUS VEIN: Diameter: None Imaged Reflux: NA DUPLICATED LATERAL GREAT SAPHENOUS VEIN: Diameter: 0.5 cm Reflux: None SMALL SAPHENOUS VEIN: Proximal: 0.2 cm; Reflux: 0 ms Distal: 0.2 cm; Reflux: 0 ms VEIN OF GIACOMINI: None Imaged. PERFORATORS: Location: None Imaged Size: NA Reflux: NA VARICOSITIES: Location: Proximal thigh Size: 0.3 cm Reflux: None 3. DEEP VENOUS ULTRASOUND OF THE LEFT LOWER EXTREMITY: Common Femoral Vein: Compressible, normal respiratory variation and augmented flow. Femoral Vein: Compressible, normal color flow and augmentation. Popliteal Vein: Compressible, normal augmentation. Deep Reflux: There is no evidence of reflux in the deep system in either the common femoral vein or the popliteal vein. There is no evidence of a Godinez's cyst. 4. SUPERFICIAL ULTRASOUND WITH DOPPLER OF LEFT LOWER EXTREMITY: GREAT SAPHENOUS VEIN: Saphenofemoral Junction: 1.1 cm; Reflux: 0 ms Proximal Thigh: 0.6 cm; Reflux: 0 ms Mid Thigh: 0.2 cm; Reflux: 0 ms Above Knee: 0.3 cm; Reflux: 0 ms At Knee: 0.3 cm; Reflux: 0 ms Below Knee: 0.2 cm; Reflux: 0 ms Mid Calf: 0.2 cm; Reflux: 0 ms Ankle: 0.2 cm; Reflux: 0 ms DUPLICATED MEDIAL GREAT SAPHENOUS VEIN: Diameter: None Imaged Reflux: NA DUPLICATED LATERAL GREAT SAPHENOUS VEIN: Diameter: 0.5 cm Reflux: 2760 ms SMALL SAPHENOUS VEIN: Proximal: 0.2 cm; Reflux: 0 ms Distal: 0.3 cm; Reflux: 0 ms VEIN OF GIACOMINI: None Imaged. PERFORATORS: Location: Lateral mid calf Size: 0.3 cm Reflux: None VARICOSITIES: Location: Lateral mid calf Size: 0.2 cm Reflux: Reflux measuring 2856 ms US/US venous duplex LE BI IMPRESSION: Right: Focal moderate reflux in the great saphenous vein within the mid thigh. Remainder of the great saphenous vein without reflux. 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
== END 2022-05-05 10:20 | disposition home or self-care (01) ==
LOC: HO.US 10:19
PROVIDERS: Visit Provider Surgery Vascular Surgery
DX: I83.11 Varicose veins of right lower extremity with inflammation (principal); I83.893 Varicose veins of bilateral lower extremities with other complications
CPT/HCPCS: 93970

== ENCOUNTER → 2022-05-20 11:04 | Outpatient (BNVA) | payer OTHER, SELFPAY | PROVIDERS: PCP Physician Assistant; Visit Provider Surgery Vascular Surgery | DX: I83.12 Varicose veins of left lower extremity with inflammation (principal) | CPT/HCPCS: 99212 ==

== ENCOUNTER 2022-06-15 10:56 | Outpatient (REF) | payer OTHER, SELFPAY ==
--- NOTE | ~2022-06-15 | MM_ITS ---
EXAMINATION: MM SCREENING DIGITAL BREAST TOMOSYNTHESIS, BILATERAL CLINICAL INFORMATION: Screening. Asymptomatic. History non-Hodgkin's B-cell lymphoma. The lifetime risk of breast cancer based on the Tyrer-Cuzick Model is 10%. COMPARISON: Mammography: 04/01/2021; outside mammography 01/29/2020, 09/12/2017 ([facility], [place], [place]). TECHNIQUE: Digital breast tomosynthesis is performed in both the craniocaudal and mediolateral oblique views along with computer-aided detection (CAD). Synthesized 2D images are generated from the tomosynthesis. Additional left MLO view is provided. FINDINGS: There are scattered areas of fibroglandular density (ACR BI-RADS breast composition Category b). There are no significant masses, abnormal calcifications, or other abnormalities. Parenchymal pattern is similar to prior studies. There is no developing density or architectural abnormality. The axilla are unremarkable. Skin contours are smooth. No significant changes. MM/MM tomosynthesis screening BI IMPRESSION: No mammographic evidence of malignancy. ASSESSMENT: BI-RADS 1: Negative RECOMMENDATION: Routine annual mammography screening. This patient's information was entered into a reminder system with a target due date for their next mammogram.
== END 2022-06-15 10:57 | disposition home or self-care (01) ==
LOC: HO.MAMMO 10:56
PROVIDERS: PCP Physician Assistant; Visit Provider Physician Assistant
DX: Z12.31 Encounter for screening mammogram for malignant neoplasm of breast (principal)
CPT/HCPCS: 77063; 77067

== ENCOUNTER 2022-06-29 10:11 | Outpatient (REF) | payer OTHER, SELFPAY ==
--- NOTE | ~2022-06-29 | PE_ITS ---
EXAMINATION: Fluorine-18 FDG PET/CT Scan CLINICAL INDICATION: Subsequent treatment management. Non-Hodgkin's B-cell lymphoma. PROCEDURE: 65 minutes following the intravenous administration of 14.7 mCi of fluorine 18 FDG, images from the base of the skull to the mid thighs were obtained using a combined PET/CT scanner with CT scan based attenuation correction. No intravenous contrast was administered. Transverse, coronal, sagittal, and volume reconstruction projections were obtained. The patient's blood glucose as determined by a finger stick, was 147 mg/dl immediately prior to injection. The radiotracer was injected intravenously through right antecubital superficial vein, without any complications. Total CT exam dose-length product 752.84 mGy-cm * These CT images were obtained using dose optimization techniques as appropriate, variously including the following: Automated exposure control * Adjustment of mA and/or kV according to patient size (this includes techniques or standardized protocols for targeted exams where dose is matched to indication/reason for exam; i.e. extremities or head) * Use of iterative reconstruction technique COMPARISON: Most recent prior PET CT study done on 09/22/2021. FINDINGS: (Slice numbers described in this report are numbered superior to inferior with slice #1 in the head) NECK AND VISUALIZED HEAD: No FDG avid disease. Specifically, no FDG avid abnormal enlarged, morphologically abnormal cervical lymphadenopathy present, unchanged since 09/22/2021. THORAX: Minimal FDG avidity within the right axillary lymph node which are morphologically normal in size and shows normal appearing fatty hilus with SUV max of 2.4 (83/267), appear new since the prior study, may represent reactive lymphadenopathy. There are no FDG avid internal mammary, mediastinal and/or hilar lymphadenopathy. No evidence of any suspicious lung nodule and/or mass or pleural or pericardial effusion. ABDOMEN AND PELVIS: The spleen measures 9.40 cm, within normal limit. No evidence of FDG avid splenic or liver or adrenal disease. 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 Previously documented multiple confluent mildly FDG avid left para-aortic retroperitoneal lymph nodes are reidentified, the dominant lymph node is seen at left lower retroperitoneum at the level of the distal part of the aorta prior to bifurcation, currently measures approximately 2.2 x 1.4 cm, previously 2.1 x 1.8 cm with SUV max of 4.0 (164/267), previously 4.2. Specific note is made of interval development of mild FDG avid right external iliac lymph node and mild interval increase in size of left external iliac lymph node with SUV max of 5.6 on the right and 3.1 on the left (196/267). Bilateral groin/inguinal mild FDG avid lymph nodes appear relatively stable. Previously documented nonobstructing tiny punctate radiopaque right renal calculi at the inferior calyx appear less pronounced. MUSCULOSKELETAL: Normal physiologic radiotracer distribution is present without evidence of any focal osseous FDG avid disease, unchanged. VASCULAR: Calcific atherosclerotic disease of the aorta including coronary artery calcifications are noted. No evidence of aneurysm. SUV max OF MEDIASTINAL BLOOD POOL: 2.1 SUV max OF LIVER: 3.2 PET/PET CT fusion skull to thigh IMPRESSION: 1. Interval development of right external iliac mild FDG avid lymphadenopathy within the lower pelvis and interval enlargement of left external iliac mild FDG avid lymphadenopathy since the most recent prior PET CT study done on 09/22/2021. Persistent stable mild FDG avid left para-aortic retroperitoneal and bilateral groin lymphadenopathy, appears similar to prior study dated 10/02/2021. 2. Interval development of morphologically normal-appearing normal-sized mild FDG avidity within the right axillary lymph node, may represent reactive changes. 3. No other significant interval change.
== END 2022-06-29 10:12 | disposition home or self-care (01) ==
LOC: HO.PET 10:11
PROVIDERS: PCP Physician Assistant; Visit Provider Internal Medicine
DX: Z13.89 Encounter for screening for other disorder (principal)

== ENCOUNTER → 2022-07-02 10:44 | Outpatient (BNVA) | payer OTHER, SELFPAY | PROVIDERS: PCP Physician Assistant; Visit Provider Surgery Vascular Surgery | DX: I83.12 Varicose veins of left lower extremity with inflammation (principal) | CPT/HCPCS: 37765 ==

== ENCOUNTER 2022-07-14 08:54 | Outpatient (REF) | payer OTHER, SELFPAY ==
--- NOTE | ~2022-07-14 | US_ITS ---
EXAMINATION: US RETROPERITONEAL LIMITED (RENAL ONLY), BILATERAL US RENAL DOPPLER, BILATERAL CLINICAL INFORMATION: Hypertension. COMPARISON: Previous CT of the abdomen and pelvis most recent January 2022. TECHNIQUE: Grayscale color and Doppler imaging of the kidneys and renal arteries including waveform spectral analysis FINDINGS: RIGHT KIDNEY: 13 x 4.7 x 6 cm (SAG x AP x TRV). The kidney is normal in size, contour, and echogenicity. Renal cortical thickness is normal. 2 stones in the lower pole measuring 8 x 4 x 8 mm and 3 x 2 x 3 mm. No parenchymal lesions. No hydronephrosis. LEFT KIDNEY: 12.4 x 6.7 x 5 cm (SAG x AP x TRV). The kidney is normal in size, contour, and echogenicity. Renal cortical thickness is normal. No calculi or focal parenchymal lesions. No hydronephrosis. RENAL DOPPLER: Aortic peak systolic velocity measures 88 cm/s. Right renal artery peak systolic velocities are normal measuring 149, 132 and 117 cm/s proximally, in the midportion and distally. Right renal artery to aorta ratio is normal measuring 1.7. Resistive indices of the segmental renal arteries in the right kidney are normal measuring 0.7. The right renal vein is patent. Left renal artery peak systolic velocities are normal appearing measuring 103, 107 and 49 cm/s proximally, in the midportion and distally. Left renal artery to aorta ratio is normal measuring 1.2. Resistive indices of the segmental renal arteries in the left kidney are normal measuring 0.6-0.7. The left renal vein is patent US/US renal BI IMPRESSION: Right renal stones. Otherwise normal renal ultrasound. Normal renal Doppler exam. No evidence of renal artery stenosis.
--- NOTE | ~2022-07-14 | US_ITS ---
EXAMINATION: US RETROPERITONEAL LIMITED (RENAL ONLY), BILATERAL US RENAL DOPPLER, BILATERAL CLINICAL INFORMATION: Hypertension. COMPARISON: Previous CT of the abdomen and pelvis most recent January 2022. TECHNIQUE: Grayscale color and Doppler imaging of the kidneys and renal arteries including waveform spectral analysis FINDINGS: RIGHT KIDNEY: 13 x 4.7 x 6 cm (SAG x AP x TRV). The kidney is normal in size, contour, and echogenicity. Renal cortical thickness is normal. 2 stones in the lower pole measuring 8 x 4 x 8 mm and 3 x 2 x 3 mm. No parenchymal lesions. No hydronephrosis. LEFT KIDNEY: 12.4 x 6.7 x 5 cm (SAG x AP x TRV). The kidney is normal in size, contour, and echogenicity. Renal cortical thickness is normal. No calculi or focal parenchymal lesions. No hydronephrosis. RENAL DOPPLER: Aortic peak systolic velocity measures 88 cm/s. Right renal artery peak systolic velocities are normal measuring 149, 132 and 117 cm/s proximally, in the midportion and distally. Right renal artery to aorta ratio is normal measuring 1.7. Resistive indices of the segmental renal arteries in the right kidney are normal measuring 0.7. The right renal vein is patent. Left renal artery peak systolic velocities are normal appearing measuring 103, 107 and 49 cm/s proximally, in the midportion and distally. Left renal artery to aorta ratio is normal measuring 1.2. Resistive indices of the segmental renal arteries in the left kidney are normal measuring 0.6-0.7. The left renal vein is patent US/US renal doppler IMPRESSION: Right renal stones. Otherwise normal renal ultrasound. Normal renal Doppler exam. No evidence of renal artery stenosis.
== END 2022-07-14 08:55 | disposition home or self-care (01) ==
LOC: HO.US 08:54
PROVIDERS: PCP Physician Assistant; Visit Provider Physician Assistant
DX: I11.9 Hypertensive heart disease without heart failure (principal)
CPT/HCPCS: 76775; 93975

== ENCOUNTER → 2022-07-15 12:56 | Outpatient (BNVA) | payer OTHER, SELFPAY | PROVIDERS: PCP Physician Assistant; Visit Provider Surgery Vascular Surgery | DX: I83.12 Varicose veins of left lower extremity with inflammation (principal); I83.11 Varicose veins of right lower extremity with inflammation | CPT/HCPCS: 99212 ==

== ENCOUNTER → 2022-08-09 14:16 | Outpatient (BNVA) | payer OTHER, SELFPAY | PROVIDERS: PCP Physician Assistant; Referring Provider Physician Assistant; Visit Provider Internal Medicine Cardiovascular Disease | DX: I11.9 Hypertensive heart disease without heart failure (principal) | CPT/HCPCS: 99212 ==